=== PATIENT | female | born 1980 | race Caucasian/White ===

== ENCOUNTER 2019-01-04 00:15 | Emergency (ER) | payer SELFPAY ==
[~2019-01-04] VITALS: Ht 167.6 cm; Wt 52.3 kg
[2019-01-04 00:34] VITALS: Ht 167.6 cm; Wt 52.3 kg
[2019-01-04] MEDS ORDERED: TYLENOL W/CODEI1 TAB PO (00:37)
[2019-01-04] MEDS ORDERED: AMOXICILLIN500 M1 PO (00:37)
[2019-01-04 00:57] VITALS: BP 123/85
== END 2019-01-04 01:03 | disposition home or self-care (01) ==
LOC: D.ER 00:15
DX: K08.89 Other specified disorders of teeth and supporting structures (principal)